=== PATIENT | female | born 1940 | race Caucasian/White ===

== ENCOUNTER 2016-08-01 18:12 | Inpatient (IN) | payer MEDICARE, MEDICAID ==
[2016-08-01 19:03] VITALS: BMI 20.5
[2016-08-01 19:26] LABS: AUTOMATED BASOPHIL 0.6 % (0-2); AUTOMATED LYMPH 3.9 % (17-44); AUTOMATED NEUTROPHIL 86.5 % (45-76); BLOOD UREA NITROGEN 32 MG/DL (7-17); CALCIUM 9.5 MG/DL (8.4-10.2); CALCULATED OSMOLALITY 270 MOs/Kg (270-290); CHLORIDE 102 mEq/L (98-107); GLUCOSE 150 MG/DL (70-99); MPV 12.5 fL (7.4-10.4); SODIUM LEVEL 135 mEq/L (137-146); TOTAL PROTEIN 7.5 G/DL (6.3-8.2)
[2016-08-01] MEDS ORDERED: PROMETHAZINE 25 MG/ML VIAL IV ONE (20:20)
--- NOTE | 2016-08-01 20:23 | EDPRACDOC ---
- General Information Chief Complaint: Nausea,Vomiting,Diarrhea Stated Complaint: NAUSEA Time Seen by Provider: 08/01/16 20:14 Information Source: Patient Mode Of Arrival: Car - History of Present Illness Onset: 4 DAYS HPI: PATIENT PRESENTS BECAUSE SHE HAS HAD NAUSEA, VOMITING AND DIARRHEA FOR 4 DAYS. DIFFUSE ABDOMINAL CRAMPING. FALLING BECAUSE OF WEAKNESS. NO HEAD INJURY. NO LOC Symptoms Occured: Reports: Spontaneous Duration: Reports: Since Onset Emesis: Reports: Bilious Pain Quality: Reports: Aching Pain Severity: Mild Pain Location: Reports: Diffuse Associated Signs & Symptoms: Reports: Nausea, Vomiting, Diarrhea Oral Intake: Decreased Urinary Output: Normal ED Past Medical History - History Reviewed Yes Nurses notes reviewed and agree except as marked Travel Outside of [place] in the Last 3 Months?: No - Patient Medical History Systemic History: Reports: Cancer (RIGHT BREAST) - Social Medical History ETOH: None Substance Abuse: None Lives With: Family Lives In: Home EDM Review of Systems - Review of Systems ROS Negative Except as Marked: Yes All systems reviewed and were negative except as marked Constitutional: No Symptoms Reported. negative: Fever, Chills, Weakness, Fatigue, Loss of Appetite Eyes: No Symptoms Reported. negative: Redness, Blurred Vision, Double Vision, Discharge, Pain, Light Sensitive, Photophobia Ears: No Symptoms Reported. negative: Pain, Hearing Loss, Drainage, Ear Pulling Throat: No Symptoms Reported. negative: Pain, Swelling Nose: No Symptoms Reported. negative: Congestion, Bleeding, Discharge, Injection, Swelling, Deformity, Ecchymosis, Tender, Abrasion, Laceration Mouth: No Symptoms Reported. negative: Pain, Drooling Respiratory: No Symptoms Reported. negative: Cough, Brassy Cough, Barky Cough, Shortness of Breath, Wheezing, Hemoptysis Cardiovascular: No Symptoms Reported. negative: Chest Pain, Palpitations, Syncope, Edema, Orthopnea, PND, Skin Mottling, Cyanosis Gastrointestinal: Diarrhea, Nausea, Pain, Vomiting. negative: Constipation, Formula Intolerance, Melena Genitourinary: No Symptoms Reported. negative: Dysuria, Hematuria, Frequency, Discharge, Bleeding, Testicular Pain, Neurological: No Symptoms Reported. negative: Headache, Dizziness, Seizure, Numbness, Weakness, Speech Difficulty, Gait Difficulty Musculoskeletal: No Symptoms Reported. negative: Neck, Chestwall, Ribs, Back, Shoulder, Arm, Elbow, Forearm, Wrist, Hand, Pelvis, Hip, Femur, Knee, Leg, Ankle , Foot Integumentary: No Symptoms Reported. negative: Itching, Rash, Bruising, Wound Allergic/Immunologic: No Symptoms Reported. negative: Hives, Itching Hematologic: No Symptoms Reported. negative: Lymphadenopathy, Easy Bruising, Easy Bleeding Endocrine: No Symptoms Reported. negative: Weight Gain, Weight Loss Psychiatric: No Symptoms Reported. negative: Anxiety, Depression, Hallucinations, Insomnia, Suicidal - Physical Exam Constitutional: Alert (Awake), No apparent distress Oriented to: Time, Person, Place Last recorded Vital Signs: Last Vital Signs Temp 99.5 F 08/01/16 18:58 Pulse 122 H 08/01/16 18:58 Resp 16 08/01/16 18:58 BP 104/55 L 08/01/16 18:58 Pulse Ox 93 08/01/16 18:58 Oxygen Pulse Oxygen Saturation 93 O2 Device Room Air Oxygen Flow Rate Fraction of Inspired Oxygen ( FIO2) - HEENT Head: Normal ( normocephalic) Eye Exam: Normal (PERRL, EOMI, Sclera white) Oropharynx: Normal (Pharynx:Moist without exudate,Gums-no swelling) Tympanic Membrane: Normal ENT EAC: Normal TMJ: Normal Nose: No Symptoms Reported (septum midline) Neck: Normal (FROM, trachea at midline) - Respiratory/Cardiovascular Respiratory: Normal - CTA (BBS clear to auscultation without adventitious sounds ) Cardiovascular: Normal (RRR without murmur, gallop or rub) - GI Auscultation: Normal (NABS) Palpation: Normal (Soft,No rebound or guarding, non distended) Tenderness: Non tender Spivey's Sign: Negative - Musculoskeletal Back: Normal (Non-Tender) Extremities: Normal (Normal tone, Pulses 2+ No cyanosis or edema, FROM) - Integumentary Skin: Normal, Warm, Dry Lymphatics: Normal (no adenopathy) - Neurologic Memory Impaired: Normal Motor Function: Normal (Normal tone, Pulses 2+ No cyanosis or edema, FROM) Cranial Nerve: Normal (CN II-X11 intact sensation, strength 5/5) Cerebellar: Normal Mood Description: Normal Perception: Normal - Results 08/01/16 19:05 08/01/16 19:05 WBC 13.9 xk/uL (3.8-10.8) H 08/01/16 19:05 RBC 4.47 xM/uL (4.20-5.40) 08/01/16 19:05 Hgb 13.6 g/dL (12.0-16.0) 08/01/16 19:05 Hct 40.7 % (36-47) 08/01/16 19:05 MCV 91 fL (81-99) 08/01/16 19:05 MCH 30.5 pg (27-32) 08/01/16 19:05 MCHC 33.5 g/dl (33-36) 08/01/16 19:05 RDW 13.3 % (11.5-14.5) 08/01/16 19:05 Plt Count 107 xk/uL (130-400) L 08/01/16 19:05 MPV 12.5 fL (7.4-10.4) H 08/01/16 19:05 Neut % (Auto) 86.5 % (45-76) H 08/01/16 19:05 Lymph % (Auto) 3.9 % (17-44) L 08/01/16 19:05 [place] % (Auto) 9.0 % (3-10) 08/01/16 19:05 Eos % (Auto) 0.0 % (0-5) 08/01/16 19:05 Baso % (Auto) 0.6 % (0-2) 08/01/16 19:05 Absolute Neuts (auto) 11.95 xk/uL (1.7-8.2) H 08/01/16 19:05 Absolute Lymphs (auto) 0.42 xk/uL (0.65-4.75) L 08/01/16 19:05 Sodium 135 mEq/L (137-146) L 08/01/16 19:05 Potassium 4.7 mEq/L (3.5-5.1) 08/01/16 19:05 Chloride 102 mEq/L (98-107) 08/01/16 19:05 Carbon Dioxide 19 mMOL/L (22-33) L 08/01/16 19:05 Anion Gap 19 mEq/L (8-16) H 08/01/16 19:05 BUN 32 MG/DL (7-17) H 08/01/16 19:05 Creatinine 1.50 MG/DL (0.52-1.04) H 08/01/16 19:05 Estimated GFR (MDRD) 34 mL/min (>=60) L 08/01/16 19:05 Glucose 150 MG/DL (70-99) H 08/01/16 19:05 Calculated Osmolality 270 MOs/Kg (270-290) 08/01/16 19:05 Calcium 9.5 MG/DL (8.4-10.2) 08/01/16 19:05 Total Bilirubin 1.0 MG/DL (0.2-1.3) 08/01/16 19:05 AST 21 IU/L (14-36) 08/01/16 19:05 ALT 24 IU/L (9-52) 08/01/16 19:05 Alkaline Phosphatase 74 IU/L (55-165) 08/01/16 19:05 Total Protein 7.5 G/DL (6.3-8.2) 08/01/16 19:05 Albumin 4.1 G/DL (3.5-5.0) 08/01/16 19:05 Amylase 50 IU/L (30-110) 08/01/16 19:05 Lipase 41 U/L (23-300) 08/01/16 19:05 Lab Results 08/01/16 08/01/16 19:05 19:05 WBC 13.9 H RBC 4.47 Hgb 13.6 Hct 40.7 MCV 91 MCH 30.5 MCHC 33.5 RDW 13.3 Plt Count 107 L MPV 12.5 H Neut % (Auto) 86.5 H Lymph % (Auto) 3.9 L [place] % (Auto) 9.0 Eos % (Auto) 0.0 Baso % (Auto) 0.6 Absolute Neuts (auto) 11.95 H Absolute Lymphs (auto) 0.42 L Sodium 135 L Potassium 4.7 Chloride 102 Carbon Dioxide 19 L Anion Gap 19 H BUN 32 H Creatinine 1.50 H Estimated GFR (MDRD) 34 L Glucose 150 H Calculated Osmolality 270 Calcium 9.5 Total Bilirubin 1.0 AST 21 ALT 24 Alkaline Phosphatase 74 Total Protein 7.5 Albumin 4.1 Amylase 50 Lipase 41 - Departure Yes I personally saw and evaluated the patient. Disposition: Admit IP To This Hospital Condition: Fair Final Diagnosis: Pyelonephritis Instructions: Acute Nausea and Vomiting (ED) Education/Counseling Given To: Patient Education/Counseling Given Regarding: Diagnosis, Treatment, Prognosis Decision to Admit Time: 23:24 Decision to admit date: 08/01/16 Decision to admit: from ED - Physician Consulted Hospitalist Time Called: 23:24 Provider Called: Chip Gamboa [employer] Returned Call: 23:24
[2016-08-01] MEDS: NS 1,000 ML IV ONE (20:45)
[2016-08-01] MEDS ORDERED: Pharmacy Review for Metformin - IV Contrast Given SCH (21:00)
[2016-08-01 21:02] LABS: LEUKOCYTES/URINE 2+ (NEGATIVE); NITRITE/URINE NEG (NEGATIVE); URINE OCCULT BLOOD 1+ (NEG/TRACE); WBC/URINE TNTC (0-5)
[2016-08-01] MEDS ORDERED: CEFTRIAXONE 1 GM in D5W 100 ML IV ONE (21:59)
--- NOTE | 2016-08-01 23:15 | DIRPT ---
CLINICAL DATA: Acute generalized abdominal pain, nausea, vomiting, diarrhea. EXAM: CT ABDOMEN AND PELVIS WITH CONTRAST TECHNIQUE: Multidetector CT imaging of the abdomen and pelvis was performed using the standard protocol following bolus administration of intravenous contrast. CONTRAST: 70 mL of Isovue 370 intravenously. COMPARISON: None. FINDINGS: Mild multilevel degenerative disc disease is noted in lower lumbar spine. Visualized lung bases are unremarkable. Large hiatal hernia is noted. No gallstones are noted. The liver, spleen and pancreas appear normal. Adrenal glands appear normal. Atherosclerosis of abdominal aorta is noted without aneurysm formation. 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 Multiple wedge-shaped low densities are noted in both kidneys, best seen on delayed post-contrast images, concerning for multifocal pyelonephritis or possibly infarctions secondary to embolic disease. No significant hydronephrosis or renal obstruction is noted. There is no evidence of bowel obstruction. Urinary bladder appears normal. Status post hysterectomy. No significant adenopathy is noted. IMPRESSION: Atherosclerosis of abdominal aorta is noted without aneurysm formation. Large hiatal hernia is noted. 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 Multiple wedge-shaped low densities are seen in both kidneys, best seen on delayed post-contrast images, most consistent with multifocal pyelonephritis, or possibly infarction secondary to embolic disease. Correlation with urinalysis is recommended. Electronically Signed By: Wes Escalante Jr, M.D. On: 08/01/2016 23:12
[2016-08-02] MEDS ORDERED: Albuterol/Ipratropium Neb 3 ML NEB NEB PRN (00:10)
[2016-08-02] MEDS ORDERED: SENNA CONCENTRATE TAB PO PRN (00:14)
[2016-08-02] MEDS ORDERED: BISACODYL 5 MG TAB PO PRN (00:14)
[2016-08-02] MEDS ORDERED: SIMETHICONE 80 MG TAB PO PRN (00:14)
[2016-08-02] MEDS ORDERED: TEMAZEPAM 15 MG CAP PO PRN (00:14)
[2016-08-02] MEDS ORDERED: ACETAMINOPHEN 650 MG SUPP PR PRN (00:14)
[2016-08-02] MEDS ORDERED: PROMETHAZINE 25 MG/ML VIAL IV PRN (00:14)
[2016-08-02] MEDS ORDERED: ONDANSETRON HCL 4 MG/2 ML VIAL IV PRN (00:14)
[2016-08-02] MEDS ORDERED: OXYCODONE HCL 5 MG TABLET PO PRN (00:15)
[2016-08-02] MEDS ORDERED: MORPHINE 2 MG/ML INJECTION IV PRN (00:15)
--- NOTE | 2016-08-02 00:18 | HISTPHYS ---
- Chief Complaint Fevers chills nausea vomiting flank pain - History of Present Illness 76 yowm presented emergency room early on today for evaluation of 5 days history of progressive worsening fevers chills nausea vomiting flank pain. Patient developed urinary symptoms with dysuria frequency and strong odor to the urine about 5 days ago. She reports initially suprapubic pressure, she has subsequent developed bilateral flank pain radiating towards both groins and gentle area. She has developed fevers shaking chills and had multiple episodes of nausea and vomiting. Her p.o. intake has declined and she has been very weak tired and very fatigued. Upon arrival in ED patient was febrile tachycardic and hypotensive. CT urogram showed pyelonephritis and medical consultation was phoned in for inpatient treatment. - Medical History Cardiac History: Reports: Hypercholesterolemia, Valvular Heart Disease Respiratory History: Reports: No Significant History GI/ History: Reports: Gastroesophageal Reflux Musculoskeletal History: Reports: Osteoarthritis Systemic History: Reports: Cancer (RIGHT BREAST) Neurological History: Reports: No Significant History Psychological History: Reports: Anxiety - Surgical History Reports: Hysterectomy (tkr, rotator, ,lumpectomy), Other - Medictions/Allergies Current Medication List: Reviewed - Family History Reports: Other (Father due to perforated ulcer and peritonitis at the age of 39.) - Social History Travel Outside of [place] in the Last 3 Months?: No Lives: Alone Smoking Status: Former smoker - Review of Systems Constitutional: Chills, Fever, Diaphoresis, Fatigue, Loss of Appetite, Weakness , Weight loss Eyes: No Symptoms Reported Ears: No Symptoms Reported Nose: No Symptoms Reported Mouth: No Symptoms Reported Throat/Neck: No Symptoms Reported Respiratory: No Symptoms Reported Cardiovascular: Palpitations Gastrointestinal: Nausea, Vomiting, Abdominal Pain, Diarrhea, Heartburn Genitourinary: Dysuria, Frequency, Urgency to urinate, Foul Ordor Neurological: No Symptoms Reported Musculoskeletal:: Arthritis Integumentary: No Symptoms Reported Allergic/Immunologic: No Symptoms Reported Hematologic: No Symptoms Reported Endocrine: No Symptoms Reported Psychiatric: No Symptoms Reported - Physical Exam Vital Signs: Initial Vitals Temperature 99.5 F 08/01/16 18:58 Pulse Rate 122 H 08/01/16 18:58 Respiratory Rate 16 08/01/16 18:58 Blood Pressure 104/55 L 08/01/16 18:58 Pulse Oxygen Saturation 93 08/01/16 18:58 Constitutional: Alert, Distress, Other (Acutely ill and toxic-appearing) Oriented to: Time, Person, Place - HEENT Eye: Normal Oropharynx: Membranes Dry ENT EAC: Normal TMJ: Normal Nose: No Symptoms Reported Respiratory: Diminished, Rhonchi Cardiovascular: Normal, Systolic murmur - GI Auscultation: Normal Palpation: Normal Tenderness: Mild, RLQ, LLQ Rectal Exam: Deferred - Exam Deferred: Yes - Musculoskeletal Back: Normal, CVA Tenderness Extremities: Edema Spine: limited range of motion - Integumentary Skin: Normal, Warm, Dry Lymphatics: Normal - Neurologic Memory Impaired: Normal Motor Function: Normal Cranial Nerve: Normal Cerebellar: Normal Mood Description: Normal, Anxious Thought: Coherent Perception: Normal - Focused CV Perfusion Exam Vital Signs: Last Vital Signs Temp 99.5 F 08/01/16 18:58 Pulse 122 H 08/01/16 19:50 Resp 18 08/01/16 19:50 BP 140/63 08/01/16 19:50 Pulse Ox 92 08/01/16 19:50 - Diagnostic Findings Allergies morphine Allergy (Verified 08/02/16 00:19) Itching Initial Vitals Temperature 99.5 F 08/01/16 18:58 Pulse Rate 122 H 08/01/16 18:58 Respiratory Rate 16 08/01/16 18:58 Blood Pressure 104/55 L 08/01/16 18:58 Pulse Oxygen Saturation 93 08/01/16 18:58 08/01/16 19:05 08/01/16 19:05 Abnormal Lab Results 08/01/16 08/01/16 08/01/16 19:05 19:05 20:40 WBC 13.9 H Plt Count 107 L MPV 12.5 H Neut % (Auto) 86.5 H Lymph % (Auto) 3.9 L Absolute Neuts (auto) 11.95 H Absolute Lymphs (auto) 0.42 L Sodium 135 L Carbon Dioxide 19 L Anion Gap 19 H BUN 32 H Creatinine 1.50 H Estimated GFR (MDRD) 34 L Glucose 150 H Urine Protein 2+ H Urine Occult Blood 1+ H Ur Leukocyte Esterase 2+ H Urine WBC Tntc H Urine WBC Clumps Present H Urine Bacteria 4+ H Hyaline Casts 10-20 H Urine Mucus Mod H Last Vital Signs Temp 99.5 F 08/01/16 18:58 Pulse 122 H 08/01/16 19:50 Resp 18 08/01/16 19:50 BP 140/63 08/01/16 19:50 Pulse Ox 92 08/01/16 19:50 Patient Name: ALISE KEBEDE LOC: ED : 1940 AGE: 76 Order Date:08/01/16 Date of Service:04/09 Report # [id number] Ord Physician: Alvarez,Dominic DO Exam # [id number] Emergency Physician: Dominic Alvarez DO Exam(s): [id number] CT/CT ABD-PELV W/IV CM CLINICAL DATA: Acute generalized abdominal pain, nausea, vomiting, diarrhea. EXAM: CT ABDOMEN AND PELVIS WITH CONTRAST TECHNIQUE: Multidetector CT imaging of the abdomen and pelvis was performed using the standard protocol following bolus administration of intravenous contrast. CONTRAST: 70 mL of Isovue 370 intravenously. COMPARISON: None. FINDINGS: Mild multilevel degenerative disc disease is noted in lower lumbar spine. Visualized lung bases are unremarkable. Large hiatal hernia is noted. No gallstones are noted. The liver, spleen and pancreas appear normal. Adrenal glands appear normal. Atherosclerosis of abdominal aorta is noted without aneurysm formation. 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 Multiple wedge-shaped low densities are noted in both kidneys, best seen on delayed post-contrast images, concerning for multifocal pyelonephritis or possibly infarctions secondary to embolic disease. No significant hydronephrosis or renal obstruction is noted. There is no evidence of bowel obstruction. Urinary bladder appears normal. Status post hysterectomy. No significant adenopathy is noted. IMPRESSION: Atherosclerosis of abdominal aorta is noted without aneurysm formation. Large hiatal hernia is noted. 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 Multiple wedge-shaped low densities are seen in both kidneys, best seen on delayed post-contrast images, most consistent with multifocal pyelonephritis, or possibly infarction secondary to embolic disease. Correlation with urinalysis is recommended. Electronically Signed By: Wes Escalante Jr, M.D. - Assessment (1) Pyelonephritis N12 - TUBULO-INTERSTITIAL NEPHRITIS, NOT SPCF ACUTE OR CHRONIC Acute Present on Admission: Yes Patient be admitted to general medical floor. She will receive IV Rocephin and IV Levaquin. Will adjust antibiotics based on culture results.. (2) Acute kidney injury N17.9 - ACUTE KIDNEY FAILURE, UNSPECIFIED Acute Present on Admission: Yes Monitor kidney function daily BMP, avoid any nephrotoxins.. Aggressive IV hydration we provided. (3) Dehydration E86.0 - DEHYDRATION Acute Present on Admission: Yes Continue IV fluids as outlined above. (4) GERD (gastroesophageal reflux disease) K21.9 - GASTRO-ESOPHAGEAL REFLUX DISEASE WITHOUT ESOPHAGITIS Chronic Present on Admission: Yes Qualifiers: Esophagitis presence: without esophagitis Qualified Code(s): K21.9 - Gastro -esophageal reflux disease without esophagitis Continue PPI (5) Hiatal hernia K44.9 - DIAPHRAGMATIC HERNIA WITHOUT OBSTRUCTION OR GANGRENE Chronic Present on Admission: Yes Continue PPI. Continue dietary and behavioral modifications. (6) Flank pain R10.9 - UNSPECIFIED ABDOMINAL PAIN Acute Present on Admission: Yes Continue narcotic analgesics on as needed basis Case Care Discussed with: Patient, Nursing Staff Total Time: 55 min . Critical Care: No Code: 90089
[2016-08-02] MEDS ORDERED: NS 1,000 ML IV SCH (01:00)
[2016-08-02] MEDS: NS 1,000 ML IV SCH ×2 (01:01→09:30)
[2016-08-02] MEDS: ENOXAPARIN 30 MG/0.3 ML PFS SQ SCH ×2 (01:54→17:19)
[2016-08-02] MEDS ORDERED: Levofloxacin 750 mg/150 ml D5W 750 MG/150 ML RTU IV ONE (02:00)
[2016-08-02] MEDS ORDERED: ALPRAZOLAM 0.5 MG TAB PO PRN (02:15)
[2016-08-02] MEDS: ACETAMINOPHEN 325 MG/TAB TABLET PO PRN ×2 (02:31→10:43)
[2016-08-02] MEDS: PANTOPRAZOLE 40 MG TAB PO SCH (05:17)
[2016-08-02] MEDS ORDERED: Vaccine Screening Complete SCH (12:00)
[2016-08-02] MEDS ORDERED: DICYCLOMINE 20 MG TAB PO PRN (14:20)
--- NOTE | 2016-08-02 17:19 | GENMEDPROG ---
Subjective Note: Patient had an episode of hypotension last night. She got multiple sedating medications before bed. She seems to take a great deal of them at home. She is also complaining of significant pain in her back Um likely related to her pyelonephritis. Notes Reviewed: Yes Events from last night noted and discussed with Clinical Staff Current Medication List: Reviewed Currently: Reports: Abdominal Pain, Ambulating DVT Prophylaxis: Yes - Physical Examination Vital Signs and I&O: Last Vital Signs Temp 99.0 F 08/02/16 14:00 Pulse 92 08/02/16 16:37 Resp 18 08/02/16 14:00 BP 91/52 L 08/02/16 14:00 Pulse Ox 96 08/02/16 14:00 Oxygen Pulse Oxygen Saturation 96 O2 Device Room Air Oxygen Flow Rate Fraction of Inspired Oxygen ( FIO2) Intake & Output 07/30/16 07/31/16 08/01/16 08/02/16 23:59 23:59 23:59 23:59 Intake Total 1734 Output Total 200 Balance 1534 Patient's weight 54.794 kg General: Alert, Oriented x3, No acute distress, Well appearing, Well nourished HEENT: Normal (Normocephalic, atraumatic;EOMI.Sclera white, Nares patent, without discharge or bleeding. No oropharyngeal lesions or erythema. Mucous membranes are dry.) Lymphatics: Normal Respiratory: Diminished, Rhonchi Cardiovascular: Regular rate and rhythm (No bradycardia or tachycardia), Normal S1, No Gallops,Rubs/Murmurs, Normal S2, Good Pedal Pulses (DP pulses 2+ bilaterally) GI: Normal bowel sounds (normal active sounds), Soft (non-distended), Non tender , No hepatospenomegaly, No masses Extremities/Musculoskeletal: Normal pulses (DP pulses 2+ bilaterally) Skin: Warm,Dry and Intact, No rashes, No significant lesion Neurological: Strength at 5/5 X4 ext (Motor 5/5 throughout.), Normal tone, Cranial nerves 3-12 NL ( 2-12 grossly intact.) Lab/DI/Studies Reviewed: Laboratory Results - last 24 hr 08/01/16 08/01/16 08/01/16 19:05 19:05 20:40 WBC 13.9 H RBC 4.47 Hgb 13.6 Hct 40.7 MCV 91 MCH 30.5 MCHC 33.5 RDW 13.3 Plt Count 107 L MPV 12.5 H Neut % (Auto) 86.5 H Lymph % (Auto) 3.9 L [place] % (Auto) 9.0 Eos % (Auto) 0.0 Baso % (Auto) 0.6 Absolute Neuts (auto) 11.95 H Absolute Lymphs (auto) 0.42 L Sodium 135 L Potassium 4.7 Chloride 102 Carbon Dioxide 19 L Anion Gap 19 H BUN 32 H Creatinine 1.50 H Estimated GFR (MDRD) 34 L Glucose 150 H Calculated Osmolality 270 Calcium 9.5 Total Bilirubin 1.0 AST 21 ALT 24 Alkaline Phosphatase 74 Total Protein 7.5 Albumin 4.1 Amylase 50 Lipase 41 Urine Color Yellow Urine Clarity Sl cldy Urine pH 6.0 Ur Specific [place] 1.005 Urine Protein 2+ H Urine Glucose (UA) Neg Urine Ketones Neg Urine Occult Blood 1+ H Urine Nitrite Neg Urine Bilirubin Neg Urine Urobilinogen <2.0 Ur Leukocyte Esterase 2+ H Urine WBC Tntc H Urine WBC Clumps Present H Urine Bacteria 4+ H Hyaline Casts 10-20 H Urine Mucus Mod H - Assessment (1) Acute kidney injury Acute N17.9 - ACUTE KIDNEY FAILURE, UNSPECIFIED Comment/Plan: Monitor kidney function daily BMP, avoid any nephrotoxins. (2) Dehydration Acute E86.0 - DEHYDRATION Comment/Plan: Continue IV fluids as outlined above. (3) Flank pain Acute R10.9 - UNSPECIFIED ABDOMINAL PAIN Comment/Plan: Continue narcotic analgesics on as needed basis (4) Pyelonephritis Acute N12 - TUBULO-INTERSTITIAL NEPHRITIS, NOT SPCF ACUTE OR CHRONIC Comment/Plan: Patient be admitted to general medical floor. She will receive IV Rocephin and IV Levaquin. Will adjust antibiotics based on culture results.. (5) GERD (gastroesophageal reflux disease) Chronic K21.9 - GASTRO-ESOPHAGEAL REFLUX DISEASE WITHOUT ESOPHAGITIS Qualifiers: Esophagitis presence: without esophagitis Qualified Code(s): K21.9 - Gastro -esophageal reflux disease without esophagitis Comment/Plan: Continue PPI (6) Hiatal hernia Chronic K44.9 - DIAPHRAGMATIC HERNIA WITHOUT OBSTRUCTION OR GANGRENE Comment /Plan: Continue PPI. Continue dietary and behavioral modifications. - Plan Plan is for patient to continue Case Care Discussed with: Patient, Nursing Staff Education/Counseling Given To: Patient Education/Counseling Given Regarding: Diagnosis, Treatment, Prognosis, Follow Up , Disposition Plan Total Time: 35 minutes Critical Care: No Couseling Time (>50% in counseling/coordination): No
[2016-08-02] MEDS: IBUPROFEN 400 MG TAB PO PRN (18:09)
[2016-08-02] MEDS: PENTOSAN POLYSULFATE SODIUM 100 MG PO SCH (20:19)
[2016-08-02] MEDS: PRAVASTATIN 20 MG TAB PO SCH (20:19)
[2016-08-02] MEDS: GABAPENTIN 100 MG CAP PO SCH (20:20)
[2016-08-02] MEDS: CEFTRIAXONE 1 GM in D5W 100 ML IV SCH ×2 (20:20→21:38)
[2016-08-02] MEDS: TIZANIDINE 2 MG TAB PO SCH (20:20)
[2016-08-02] MEDS ORDERED: ALPRAZOLAM 0.5 MG TAB PO SCH (21:00)
[2016-08-02] MEDS: NS 1,000 ML IV ONE ×3 (21:54→22:56)
[2016-08-03] MEDS: NS 1,000 ML IV SCH ×4 (00:17→20:44)
[2016-08-03] MEDS ORDERED: NS 250 ML IV ONE (00:44)
[2016-08-03] MEDS ORDERED: NS 1,000 ML IV SCH (01:00)
[2016-08-03] MEDS ORDERED: NS 1,000 ML IV ONE (01:57)
[2016-08-03] MEDS ORDERED: Levofloxacin 250 mg/50 ml D5W 250 MG/50 ML RTU IV SCH (02:00)
[2016-08-03] MEDS: GABAPENTIN 100 MG CAP PO SCH ×3 (04:45→21:59)
[2016-08-03] MEDS: PANTOPRAZOLE 40 MG TAB PO SCH (04:45)
[2016-08-03 07:26] LABS: AUTOMATED BASOPHIL 0.2 % (0-2); AUTOMATED EOSINOPHIL 0.2 % (0-5); AUTOMATED LYMPH 4.2 % (17-44); AUTOMATED NEUTROPHIL 87.4 % (45-76); MPV 12.2 fL (7.4-10.4)
[2016-08-03] MEDS: OMEGA-3-ACID ETHYL ESTERS 1000 MG CAP PO SCH (08:22)
[2016-08-03] MEDS: CYANOCOBALAMIN (Vitamin B-12) 500 MCG TABLET PO SCH (08:22)
[2016-08-03] MEDS: PENTOSAN POLYSULFATE SODIUM 100 MG PO SCH ×2 (08:22→21:59)
[2016-08-03] MEDS: RALOXIFENE 60 MG TAB PO SCH (08:22)
[2016-08-03] MEDS: MAGNESIUM OXIDE 400 MG TAB PO SCH (08:22)
[2016-08-03] MEDS: IBUPROFEN 400 MG TAB PO PRN (08:27)
[2016-08-03] MEDS ORDERED: FISH OIL PO SCH (09:00)
[2016-08-03] MEDS ORDERED: Non-Formulary Medication ITEM (Cholecalciferol (Vitamin D3) [Vitamin D3] 2,000 UNIT) PO SCH (09:00)
[2016-08-03] MEDS ORDERED: MAGNESIUM 200 MG PO SCH (09:00)
[2016-08-03] MEDS ORDERED: OMEGA PO SCH (09:00)
[2016-08-03] MEDS ORDERED: Non-Formulary Medication ITEM (Cyanocobalamin (Vitamin B-12) [Vitamin B-12] 1,000 MCG) PO SCH (09:00)
[2016-08-03] MEDS ORDERED: FATTY ACIDS PO SCH (09:00)
[2016-08-03] MEDS ORDERED: [UNRECOGNIZED DRUG - OTHER] PO SCH (09:00)
[2016-08-03] MEDS ORDERED: Non-Formulary Medication ITEM (Ca/D3/Mag#11/Zinc/Cop/Mang/Bor [Caltrate 600+D Plus Table PO SCH (09:00)
[2016-08-03 09:12] LABS: BLOOD UREA NITROGEN 15 MG/DL (7-17); CALCIUM 7.6 MG/DL (8.4-10.2); CALCULATED OSMOLALITY 273 MOs/Kg (270-290); CHLORIDE 116 mEq/L (98-107); GLUCOSE 81 MG/DL (70-99); SODIUM LEVEL 142 mEq/L (137-146)
[2016-08-03] MEDS: CALCIUM CARBONATE + VITAMIN D 500 MG TAB PO SCH (11:51)
[2016-08-03] MEDS: CHOLECALCIFEROL 1000 UNITS TAB PO SCH (11:51)
[2016-08-03] MEDS: IBUPROFEN 800 MG TAB PO SCH ×2 (15:38→21:59)
[2016-08-03] MEDS ORDERED: ENOXAPARIN 40 MG/0.4 ML PFS SQ SCH (18:00)
[2016-08-03] MEDS: PRAVASTATIN 20 MG TAB PO SCH (21:59)
[2016-08-03] MEDS: TIZANIDINE 2 MG TAB PO SCH (21:59)
[2016-08-03] MEDS: CEFTRIAXONE 1 GM in D5W 100 ML IV SCH (22:01)
[2016-08-04] MEDS: NS 1,000 ML IV SCH ×3 (02:29→10:23)
[2016-08-04] MEDS: IBUPROFEN 800 MG TAB PO SCH ×3 (02:34→14:51)
[2016-08-04] MEDS: GABAPENTIN 100 MG CAP PO SCH ×2 (05:13→13:43)
[2016-08-04] MEDS: PANTOPRAZOLE 40 MG TAB PO SCH (05:13)
[2016-08-04] MEDS ORDERED: FUROSEMIDE 40 MG/4 ML VIAL IV ONE (07:29)
[2016-08-04] MEDS: CYANOCOBALAMIN (Vitamin B-12) 500 MCG TABLET PO SCH (07:53)
[2016-08-04] MEDS: MAGNESIUM OXIDE 400 MG TAB PO SCH (07:53)
[2016-08-04] MEDS: RALOXIFENE 60 MG TAB PO SCH (07:54)
[2016-08-04] MEDS: OMEGA-3-ACID ETHYL ESTERS 1000 MG CAP PO SCH (07:54)
[2016-08-04] MEDS: PENTOSAN POLYSULFATE SODIUM 100 MG PO SCH (07:56)
[2016-08-04] MEDS ORDERED: CEFAZOLIN 1 GM in D5W 100 ML IV SCH (10:13)
[2016-08-04] MEDS: CHOLECALCIFEROL 1000 UNITS TAB PO SCH (11:45)
[2016-08-04] MEDS: CALCIUM CARBONATE + VITAMIN D 500 MG TAB PO SCH (11:45)
[2016-08-04] MEDS ORDERED: Cefazolin 1gm/50 ml D5W 1 GM/50 ML RTU IV SCH ×3 (12:00)
[2016-08-04 13:59] VITALS: BP 148/81; TEMP 97.7
--- NOTE | 2016-08-04 14:56 | PCM.DCS92 ---
- Final/Secondary Discharge Diagnosis (1) Acute kidney injury Resolved N17.9 - ACUTE KIDNEY FAILURE, UNSPECIFIED Present on Admission: Yes Comment: Monitor kidney function daily BMP, avoid any nephrotoxins. (2) Dehydration Resolved E86.0 - DEHYDRATION Present on Admission: Yes Comment: Continue IV fluids as outlined above. (3) Flank pain Acute R10.9 - UNSPECIFIED ABDOMINAL PAIN Present on Admission: Yes Comment: Continue narcotic analgesics on as needed basis (4) Pyelonephritis Acute N12 - TUBULO-INTERSTITIAL NEPHRITIS, NOT SPCF ACUTE OR CHRONIC Present on Admission: Yes Comment: Patient be admitted to general medical floor. She will receive IV Rocephin and IV Levaquin. Will adjust antibiotics based on culture results.. (5) GERD (gastroesophageal reflux disease) Chronic K21.9 - GASTRO-ESOPHAGEAL REFLUX DISEASE WITHOUT ESOPHAGITIS Present on Admission: Yes without esophagitis K21.9 - Gastro-esophageal reflux disease without esophagitis Comment: Continue PPI (6) Hiatal hernia Chronic K44.9 - DIAPHRAGMATIC HERNIA WITHOUT OBSTRUCTION OR GANGRENE Present on Admission: Yes Comment: Continue PPI. Continue dietary and behavioral modifications. Discharge Condition: Fair Physician Follow up/Referrals: None,No Provider [Family Provider] - One Week New Prescriptions: Cephalexin Monohydrate [Keflex] 500 mg PO Q8H #30 cap Oxycodone Immediate Release [Oxycodone Immediate Release (OxyIR)] 5 mg PO Q4H PRN #20 tablet PRN Reason: Moderate To Severe Pain O2 Device: Room Air - DC Summary Notes Hospital Course Note:: Discharge summary on patient named ALISE KEBEDE admitted to [facility] on 08/02/16 by Chip Gamboa MD. Date of discharge is []. - Physical Exam Vital Signs: Last Vital Signs Temp 97.7 F 08/04/16 13:58 Pulse 100 08/04/16 13:58 Resp 18 08/04/16 13:58 BP 148/81 08/04/16 13:58 Pulse Ox 96 08/04/16 13:58 Oxygen Pulse Oxygen Saturation 96 O2 Device Room Air Oxygen Flow Rate Fraction of Inspired Oxygen ( FIO2) Constitutional: Alert, Distress, Other (Acutely ill and toxic-appearing) Oriented to: Time, Person, Place - HEENT Eye: Normal Oropharynx: Membranes Dry ENT EAC: Normal TMJ: Normal Nose: No Symptoms Reported - Respiratory/Cardiovascular Respiratory: Diminished, Rhonchi - GI Auscultation: Normal Palpation: Normal Tenderness: Mild, RLQ, LLQ Rectal Exam: Deferred - Musculoskeletal Back: Normal, CVA Tenderness Extremities: Edema - Integumentary Skin: Normal (Warm dry no rashes) Lymphatics: Normal - Neurologic Memory Impaired: Normal Cerebellar: Normal Mood Description: Normal, Anxious Thought: Coherent Perception: Normal
--- NOTE | 2016-08-04 14:58 | GENMEDPROG ---
Subjective Note: Patient starting to feel better renal function significantly improved. Tolerating p.o. Notes Reviewed: Yes Events from last night noted and discussed with Clinical Staff Current Medication List: Reviewed Currently: Reports: Abdominal Pain, Ambulating. Denies: Nausea and Vomiting DVT Prophylaxis: Yes - Physical Examination Vital Signs and I&O: Last Vital Signs Temp 97.7 F 08/04/16 13:58 Pulse 100 08/04/16 13:58 Resp 18 08/04/16 13:58 BP 148/81 08/04/16 13:58 Pulse Ox 96 08/04/16 13:58 Oxygen Pulse Oxygen Saturation 96 O2 Device Room Air Oxygen Flow Rate Fraction of Inspired Oxygen ( FIO2) Intake & Output 08/01/16 08/02/16 08/03/16 08/04/16 23:59 23:59 23:59 23:59 Intake Total 6172 4277 3247 Output Total 443 1500 4100 Balance 5523 3256 -081 Patient's weight 54.794 kg 55.82 kg 63.191 kg General: Alert, Oriented x3, No acute distress, Well appearing, Well nourished HEENT: Normal (Normocephalic, atraumatic;EOMI.Sclera white, Nares patent, without discharge or bleeding. No oropharyngeal lesions or erythema. Mucous membranes are dry.) Neck: Non-tender, Full range of motion, Normal Trachea alignment, Normal inspection (No cervical lymphadenopathy. No supraclavicular lymphadenopathy.), No Masses palpable, Supple Lymphatics: Normal Respiratory: Diminished, Rhonchi Cardiovascular: Regular rate and rhythm (No bradycardia or tachycardia), Normal S1, No Gallops,Rubs/Murmurs, Normal S2, Good Pedal Pulses (DP pulses 2+ bilaterally) GI: Normal bowel sounds (normal active sounds), Soft (non-distended), Non tender , No hepatospenomegaly, No masses Extremities/Musculoskeletal: Normal pulses (DP pulses 2+ bilaterally) Skin: Warm,Dry and Intact, No rashes, No significant lesion Neurological: Strength at 5/5 X4 ext (Motor 5/5 throughout.), Normal tone, Cranial nerves 3-12 NL ( 2-12 grossly intact.) Lab/DI/Studies Reviewed: Laboratory Tests 08/03/16 08/03/16 07:03 07:03 WBC 11.9 H Hgb 12.4 Hct 38.1 Plt Count 71 L Sodium 142 D Potassium 4.3 Chloride 116 H Carbon Dioxide 16 L Anion Gap 14 BUN 15 Creatinine 1.00 Estimated GFR (MDRD) 54 L Glucose 81 Calculated Osmolality 273 Calcium 7.6 L Magnesium 2.00 Microbiology 08/01/16 20:40 Urine - Clean Catch - Midstream Urine Culture - Preliminary Escherichia coli Non-fermenting gram-neg neo - Assessment (1) Pyelonephritis Acute N12 - TUBULO-INTERSTITIAL NEPHRITIS, NOT SPCF ACUTE OR CHRONIC Comment/Plan: Continue current IV antibiotics adjust as culture data becomes available. (2) E coli infection Acute A49.8 - OTHER BACTERIAL INFECTIONS OF UNSPECIFIED SITE Comment/Plan: Growing E coli in urine await sensitivities (3) Flank pain Acute R10.9 - UNSPECIFIED ABDOMINAL PAIN Comment/Plan: Continue narcotic analgesics on as needed basis (4) Acute kidney injury Resolved N17.9 - ACUTE KIDNEY FAILURE, UNSPECIFIED Comment/Plan: Monitor kidney function daily BMP, avoid any nephrotoxins. Renal function now normal (5) Dehydration Resolved E86.0 - DEHYDRATION Comment/Plan: Resolved tapered to p.o. liquids (6) GERD (gastroesophageal reflux disease) Chronic K21.9 - GASTRO-ESOPHAGEAL REFLUX DISEASE WITHOUT ESOPHAGITIS Qualifiers: Esophagitis presence: without esophagitis Qualified Code(s): K21.9 - Gastro -esophageal reflux disease without esophagitis Comment/Plan: Continue PPI (7) Hiatal hernia Chronic K44.9 - DIAPHRAGMATIC HERNIA WITHOUT OBSTRUCTION OR GANGRENE Comment /Plan: Continue PPI. Continue dietary and behavioral modifications. - Plan Plan is for patient to continue current antibiotics. Disposition Plan: Likely home Case Care Discussed with: Patient, Nursing Staff Education/Counseling Given To: Patient Education/Counseling Given Regarding: Diagnosis, Treatment, Prognosis, Follow Up , Disposition Plan Total Time: 45 minutes Critical Care: No Couseling Time (>50% in counseling/coordination): No
--- NOTE | 2016-08-04 15:03 | PCM.DCS92 ---
- Final/Secondary Discharge Diagnosis (1) Pyelonephritis Acute N12 - TUBULO-INTERSTITIAL NEPHRITIS, NOT SPCF ACUTE OR CHRONIC Present on Admission: Yes Comment: Continue current IV antibiotics adjust as culture data becomes available. (2) E coli infection Acute A49.8 - OTHER BACTERIAL INFECTIONS OF UNSPECIFIED SITE Comment: Growing E coli in urine await sensitivities (3) Flank pain Acute R10.9 - UNSPECIFIED ABDOMINAL PAIN Present on Admission: Yes Comment: Continue narcotic analgesics on as needed basis (4) Acute kidney injury Resolved N17.9 - ACUTE KIDNEY FAILURE, UNSPECIFIED Present on Admission: Yes Comment: Monitor kidney function daily BMP, avoid any nephrotoxins. Renal function now normal (5) Dehydration Resolved E86.0 - DEHYDRATION Present on Admission: Yes Comment: Resolved tapered to p.o. liquids (6) GERD (gastroesophageal reflux disease) Chronic K21.9 - GASTRO-ESOPHAGEAL REFLUX DISEASE WITHOUT ESOPHAGITIS Present on Admission: Yes without esophagitis K21.9 - Gastro-esophageal reflux disease without esophagitis Comment: Continue PPI (7) Hiatal hernia Chronic K44.9 - DIAPHRAGMATIC HERNIA WITHOUT OBSTRUCTION OR GANGRENE Present on Admission: Yes Comment: Continue PPI. Continue dietary and behavioral modifications. Discharge Disposition: Home Discharge Condition: Improved Cognitive Discharge Status: Unimpaired Fuctional Discharge Status: Independent New Prescriptions: Cephalexin Monohydrate [Keflex] 500 mg PO Q8H #30 cap Oxycodone Immediate Release [Oxycodone Immediate Release (OxyIR)] 5 mg PO Q4H PRN #20 tablet PRN Reason: Moderate To Severe Pain Discharge Home Medication List Alprazolam [Xanax] 1 mg PO QHS 08/02/16 [History Confirmed 08/02/16] Ca/D3/Mag#11/Zinc/Mandate Retail Service Merchandiser/Elías/Bor [Caltrate 600+D Plus Tablet] 1 tab PO DAILY 08/02 [History Confirmed 08/02/16] Cholecalciferol (Vitamin D3) [Vitamin D3] 2,000 unit PO DAILY 08/02/16 [History Confirmed 08/02/16] Cyanocobalamin (Vitamin B-12) [Vitamin B-12] 1,000 mcg PO DAILY 08/02/16 [ History Confirmed 08/02/16] Dicyclomine HCl [Bentyl] 20 - 40 mg PO Q6H PRN 08/02/16 [History Confirmed 08/02] Gabapentin [Neurontin] 100 mg PO TID 08/02/16 [History Confirmed 08/02/16] HydrOXYzine HCl (Antihistamine [Atarax] 25 mg PO QHS 08/02/16 [History Confirmed 08/02/16] Magnesium [Magnesium Gluconate] 200 mg PO DAILY 08/02/16 [History Confirmed 05/09] [place]-3 Fatty Acids/Fish Oil [Fish Oil 1,[address]] 1 cap PO DAILY 08/02 [History Confirmed 08/02/16] Pentosan Polysulfate Sodium [Elmiron] 200 mg PO BID 08/02/16 [History Confirmed 08/02/16] Pravastatin Sodium [Pravachol] 20 mg PO HS 08/02/16 [History Confirmed 08/02/16] Raloxifene [Evista] 60 mg PO DAILY 08/02/16 [History Confirmed 08/02/16] Tizanidine [Zanaflex] 4 mg PO QHS 08/02/16 [History Confirmed 08/02/16] Cephalexin Monohydrate [Keflex] 500 mg PO Q8H #30 cap 08/04/16 [Rx] Oxycodone Immediate Release [Oxycodone Immediate Release (OxyIR)] 5 mg PO Q4H PRN #20 tablet 08/04/16 [Rx] New Discharge Medications (Rx) Cephalexin Monohydrate [Keflex] 500 mg PO Q8H #30 cap 08/04/16 [Rx] Oxycodone Immediate Release [Oxycodone Immediate Release (OxyIR)] 5 mg PO Q4H PRN #20 tablet 08/04/16 [Rx] O2 Device: Room Air Additional Instructions: Follow up with your regular medical doctor in 1 week. If you do not have a medical doctor we can obtain 1 for you. Diet at Discharge: As Tolerated, Regular Activity: No Restrictions Call Office For: Worsening Symptoms, Fever over 101 F, Pain Uncontrolled By Meds - DC Summary Notes Hospital Course Note:: Discharge summary on patient named ALISE KEBEDE admitted to [facility] on 08/02/16 by Chip Gamboa MD. Date of discharge is []. Pleasant 76-year-old female who presented to the emergency department with fever and flank pain. She was found to have pyelonephritis. She grew out a pansensitive E coli from her urine and improved very quickly. During her hospitalization she was able to tolerate p.o. fluids and solids as well as ambulate without any difficulty. At this point patient is stable for discharge home. She will follow up with a primary care physician 1 week. Total Time: 45 minutes - Physical Exam Vital Signs: Last Vital Signs Temp 97.7 F 08/04/16 13:58 Pulse 100 08/04/16 13:58 Resp 18 08/04/16 13:58 BP 148/81 08/04/16 13:58 Pulse Ox 96 08/04/16 13:58 Oxygen Pulse Oxygen Saturation 96 O2 Device Room Air Oxygen Flow Rate Fraction of Inspired Oxygen ( FIO2) Constitutional: Alert, Distress, Other (Acutely ill and toxic-appearing) Oriented to: Time, Person, Place - HEENT Eye: Normal Oropharynx: Membranes Dry ENT EAC: Normal TMJ: Normal Nose: No Symptoms Reported - Respiratory/Cardiovascular Respiratory: Diminished, Rhonchi - GI Auscultation: Normal Palpation: Normal Tenderness: Mild, RLQ, LLQ Rectal Exam: Deferred - Musculoskeletal Back: Normal, CVA Tenderness Extremities: Edema - Integumentary Lymphatics: Normal - Neurologic Memory Impaired: Normal Cerebellar: Normal Mood Description: Normal, Anxious Thought: Coherent Perception: Normal
[2016-08-04 18:41] VITALS: PULSE 97
== END 2016-08-04 16:57 | disposition home or self-care (01) | DRG 690 ==
LOC: ED 18:12 → MPS3 08-02 00:10
PROVIDERS: ADMIT Internal Medicine; ATTEND Hospitalist
DX: N12 Tubulo-interstitial nephritis, not specified as acute or chronic (principal); N17.9 Acute kidney failure, unspecified; B96.20 Unspecified Escherichia coli [E. coli] as the cause of diseases classified elsewhere; K21.9 Gastro-esophageal reflux disease without esophagitis; K44.9 Diaphragmatic hernia without obstruction or gangrene; E78.00 Pure hypercholesterolemia, unspecified; I51.9 Heart disease, unspecified; Z85.3 Personal history of malignant neoplasm of breast; F41.9 Anxiety disorder, unspecified; Z87.891 Personal history of nicotine dependence; E86.0 Dehydration
CPT/HCPCS: 36415; 74177; 80048; 80053; 81001; 82150; 83690; 83735; 85025; 87040; 87077; 87086; 87186; 87804; 96361; 96372; 96375; 99284; A9698; G0237; J0690; J0696; J1650; J1940; J1956; J2550; J3490; J7060

== ENCOUNTER 2016-08-20 13:25 | Emergency (ER) | payer MEDICARE, MEDICAID ==
[2016-08-20 13:44] VITALS: TEMP 98.1; BMI 23.8
[2016-08-20] MEDS ORDERED: NS 1,000 ML IV ONE ×2 (14:09→17:41)
[2016-08-20 14:57] LABS: LEUKOCYTES/URINE NEG (NEGATIVE); NITRITE/URINE NEG (NEGATIVE); RBC/URINE 0-2 (0-5); URINE OCCULT BLOOD NEG (NEG/TRACE)
--- NOTE | 2016-08-20 15:12 | DIRPT ---
CLINICAL DATA: Sepsis. EXAM: PORTABLE CHEST 1 VIEW COMPARISON: 11/25/2014 FINDINGS: Moderate to large sized hiatal hernia. Mild hyperinflation of the lungs. No confluent airspace opacities or effusions. Heart is normal size. No acute bony abnormality. IMPRESSION: Hyperinflation. Moderate to large hiatal hernia. Electronically Signed By: Guille Clifford M.D. On: 08/20/2016 15:10
[2016-08-20 16:11] LABS: AUTOMATED BASOPHIL 0.8 % (0-2); AUTOMATED EOSINOPHIL 0.2 % (0-5); AUTOMATED LYMPH 14.9 % (17-44); AUTOMATED MONOCYTE 9.6 % (3-10); AUTOMATED NEUTROPHIL 74.5 % (45-76); MPV 11.4 fL (7.4-10.4)
[2016-08-20 16:17] LABS: BLOOD UREA NITROGEN 26 MG/DL (7-17); CALC CORRECTED 10.4 MG/DL (8.4-10.2); CALCIUM 9.9 MG/DL (8.4-10.2); CALCULATED OSMOLALITY 269 MOs/Kg (270-290); CHLORIDE 101 mEq/L (98-107); GLUCOSE 90 MG/DL (70-99); SODIUM LEVEL 137 mEq/L (137-146); TOTAL PROTEIN 6.8 G/DL (6.3-8.2)
[2016-08-20 16:20] LABS: PARTIAL THROMB. TIME 28.4 SEC (22-35); PT-INR 1.1
--- NOTE | 2016-08-20 16:28 | EDPRACDOC ---
<Dominic Alvarez - Last Filed: 08/20/16 18:48> - General Information Information Source: Patient, Desizing Machine Offbearer Mode Of Arrival: Ambulance - History of Present Illness Onset: this am HPI: Pt sent from urgent care for low BP in 90's systolic. No prior hx of low BP, or HTN. Pt admitted 08/01/16 to for pyelonephritis, d/c 08/04 with keflex. Pt took all the keflex but states that she cont to feel weak with bilateral "kidney pain ". Denies fever, cp, sob, N/V/D, chnage in urine or BM. Med hx = none. Symptoms: Reports: Mild Circumstances: Reports: Spontaneous Onset Relevent History of: Reports: None Hypertension Treatment: Reports: None Recent Use of: Reports: None Associated Signs and Symptoms: Reports: None <Gregor Padgett - Last Filed: 08/20/16 20:02> - General Information Chief Complaint: Blood Pressure (Problems) Stated Complaint: HYPOTENSION Time Seen by Provider: 08/20/16 15:50 Home Medications: Home Medications Alprazolam [Xanax] 1 mg PO QHS 08/02/16 Ca/D3/Mag#11/Zinc/Design Chief/Elías/Bor [Caltrate 600+D Plus Tablet] 1 tab PO DAILY 08/02 Cholecalciferol (Vitamin D3) [Vitamin D3] 2,000 unit PO DAILY 08/02/16 Cyanocobalamin (Vitamin B-12) [Vitamin B-12] 1,000 mcg PO DAILY 08/02/16 Dicyclomine HCl [Bentyl] 20 - 40 mg PO Q6H PRN 08/02/16 Gabapentin [Neurontin] 100 mg PO TID 08/02/16 HydrOXYzine HCl (Antihistamine [Atarax] 25 mg PO QHS 08/02/16 Magnesium [Magnesium Gluconate] 200 mg PO DAILY 08/02/16 [place]-3 Fatty Acids/Fish Oil [Fish Oil 1,[address]] 1 cap PO DAILY 08/02 Pentosan Polysulfate Sodium [Elmiron] 200 mg PO BID 08/02/16 Pravastatin Sodium [Pravachol] 20 mg PO HS 08/02/16 Raloxifene [Evista] 60 mg PO DAILY 08/02/16 Tizanidine [Zanaflex] 4 mg PO QHS 08/02/16 Furosemide [Lasix] 20 mg PO DAILY PRN 08/20/16 Sulfamethoxazole/Trimethoprim [Bactrim Ds Tablet] 1 tab PO BID #20 tab 08/20/16 Allergies/Adverse Reactions: Allergies Allergy/AdvReac Type Severity Reaction Status Date / Time morphine Allergy Itching Verified 08/20/16 13:44 - Treatment Prior to ED Arrival Reported Medications/Treatment SYSTEMS ADMINISTRATOR EMS Treatment ALS IV Yes <Dominic Alvarez - Last Filed: 08/20/16 18:48> - Treatment Prior to ED Arrival Reported Medications/Treatment SYSTEMS ADMINISTRATOR EMS Treatment ALS IV Yes <Gregor Padgett - Last Filed: 08/20/16 20:02> ED Past Medical History - History Reviewed Yes Nurses notes reviewed and agree except as marked - Patient Medical History Cardiac History: Reports: Hypercholesterolemia, Valvular Heart Disease GI/ History: Reports: Gastroesophageal Reflux Musculoskeletal History: Reports: Osteoarthritis. Denies: Arthritis Psychological History: Reports: Depression, Anxiety Systemic History: Reports: Cancer (RIGHT BREAST) Surgical History: Reports: Hysterectomy (tkr, rotator, ,lumpectomy), Other - Social Medical History Smoking Status: Former smoker <Gregor Padgett - Last Filed: 08/20/16 20:02> EDM Review of Systems - Review of Systems ROS Negative Except as Marked: Yes All systems reviewed and were negative except as marked Constitutional: Weakness Gastrointestinal: Other (bilatewrla "kidney pain") ROS Comments: low BP at urgent care <Gregor Padgett - Last Filed: 08/20/16 20:02> - Physical Exam Last recorded Vital Signs: Last Vital Signs Temp 98.1 F 08/20/16 13:44 Pulse 72 08/20/16 17:08 Resp 18 08/20/16 17:08 BP 114/63 08/20/16 17:08 Pulse Ox 93 08/20/16 17:08 Oxygen Pulse Oxygen Saturation 93 O2 Device Room Air Oxygen Flow Rate Fraction of Inspired Oxygen ( FIO2) <Dominic Alvarez - Last Filed: 08/20/16 18:48> - Physical Exam Constitutional: No apparent distress, Alert Oriented to: Time, Person, Place Last recorded Vital Signs: Last Vital Signs Temp 98.1 F 08/20/16 13:44 Pulse 88 08/20/16 13:44 Resp 18 08/20/16 13:44 BP 101/55 L 08/20/16 13:44 Pulse Ox 95 08/20/16 13:44 Oxygen Pulse Oxygen Saturation 95 O2 Device Room Air Oxygen Flow Rate Fraction of Inspired Oxygen ( FIO2) - HEENT Head: Normal Eye Exam: negative: Conjunctival Injection, Scleral Icterus Oropharynx: negative: Drooling TMJ: Normal Nose: No Symptoms Reported Neck: Normal - Respiratory/Cardiovascular Respiratory: Normal - CTA Cardiovascular: Normal - GI Auscultation: Normal Palpation: Normal Tenderness: Non tender - Musculoskeletal Back: Normal Extremities: Normal - Integumentary Skin: Normal - Neurologic Mood Description: Normal Thought: Coherent Perception: Normal <Gregor Padgett - Last Filed: 08/20/16 20:02> - Results 08/20/16 15:50 08/20/16 15:50 WBC 7.7 xk/uL (3.8-10.8) 08/20/16 15:50 RBC 3.75 xM/uL (4.20-5.40) L 08/20/16 15:50 Hgb 11.4 g/dL (12.0-16.0) L 08/20/16 15:50 Hct 34.3 % (36-47) L 08/20/16 15:50 MCV 91 fL (81-99) 08/20/16 15:50 MCH 30.3 pg (27-32) 08/20/16 15:50 MCHC 33.2 g/dl (33-36) 08/20/16 15:50 RDW 13.1 % (11.5-14.5) 08/20/16 15:50 Plt Count 249 xk/uL (130-400) 08/20/16 15:50 MPV 11.4 fL (7.4-10.4) H 08/20/16 15:50 Neut % (Auto) 74.5 % (45-76) 08/20/16 15:50 Lymph % (Auto) 14.9 % (17-44) L 08/20/16 15:50 [place] % (Auto) 9.6 % (3-10) 08/20/16 15:50 Eos % (Auto) 0.2 % (0-5) 08/20/16 15:50 Baso % (Auto) 0.8 % (0-2) 08/20/16 15:50 Absolute Neuts (auto) 5.70 xk/uL (1.7-8.2) 08/20/16 15:50 Absolute Lymphs (auto) 1.08 xk/uL (0.65-4.75) 08/20/16 15:50 PT 11.3 SEC (9.2-11.2) H 08/20/16 15:50 INR 1.1 08/20/16 15:50 APTT 28.4 SEC (22-35) 08/20/16 15:50 Sodium 137 mEq/L (137-146) 08/20/16 15:50 Potassium 4.7 mEq/L (3.5-5.1) 08/20/16 15:50 Chloride 101 mEq/L (98-107) 08/20/16 15:50 Carbon Dioxide 25 mMOL/L (22-33) 08/20/16 15:50 Anion Gap 16 mEq/L (8-16) 08/20/16 15:50 BUN 26 MG/DL (7-17) H 08/20/16 15:50 Creatinine 1.40 MG/DL (0.52-1.04) H 08/20/16 15:50 Estimated GFR (MDRD) 37 mL/min (>=60) L 08/20/16 15:50 Glucose 90 MG/DL (70-99) 08/20/16 15:50 Calculated Osmolality 269 MOs/Kg (270-290) L 08/20/16 15:50 Lactic Acid 0.7 mEq/L (0.7-2.1) 08/20/16 16:30 Calcium 9.9 MG/DL (8.4-10.2) 08/20/16 15:50 Corrected Calcium 10.4 MG/DL (8.4-10.2) H 08/20/16 15:50 Total Bilirubin 0.8 MG/DL (0.2-1.3) 08/20/16 15:50 AST 39 IU/L (14-36) H 08/20/16 15:50 ALT 51 IU/L (9-52) 08/20/16 15:50 Alkaline Phosphatase 83 IU/L (55-165) 08/20/16 15:50 Total Protein 6.8 G/DL (6.3-8.2) 08/20/16 15:50 Albumin 3.5 G/DL (3.5-5.0) 08/20/16 15:50 Urine Color Yellow 08/20/16 14:45 Urine Clarity Clear 08/20/16 14:45 Urine pH 7.0 (5.0-8.0) 08/20/16 14:45 Ur Specific [place] 1.005 (1.003-1.035) 08/20/16 14:45 Urine Protein Neg (NEG/TRACE) 08/20/16 14:45 Urine Glucose (UA) Neg (NEGATIVE) 08/20/16 14:45 Urine Ketones Neg (NEGATIVE) 08/20/16 14:45 Urine Occult Blood Neg (NEG/TRACE) 08/20/16 14:45 Urine Nitrite Neg (NEGATIVE) 08/20/16 14:45 Urine Bilirubin Neg (NEGATIVE) 08/20/16 14:45 Urine Urobilinogen <2.0 MG/DL (0-1) 08/20/16 14:45 Ur Leukocyte Esterase Neg (NEGATIVE) 08/20/16 14:45 Urine RBC 0-2 (0-5) 08/20/16 14:45 Urine WBC 10-20 (0-5) H 08/20/16 14:45 Ur Epithelial Cells 1+ 08/20/16 14:45 Urine Bacteria Few (NEG/FEW) 08/20/16 14:45 Hyaline Casts 2-5 (0-2) H 08/20/16 14:45 Urine Mucus Occ (NEG/OCC) 08/20/16 14:45 Lab Results 08/20/16 08/20/16 08/20/16 16:30 15:50 15:50 WBC 7.7 RBC 3.75 L Hgb 11.4 L Hct 34.3 L MCV 91 MCH 30.3 MCHC 33.2 RDW 13.1 Plt Count 249 MPV 11.4 H Neut % (Auto) 74.5 Lymph % (Auto) 14.9 L [place] % (Auto) 9.6 Eos % (Auto) 0.2 Baso % (Auto) 0.8 Absolute Neuts (auto) 5.70 Absolute Lymphs (auto) 1.08 PT 11.3 H INR 1.1 APTT 28.4 Sodium Potassium Chloride Carbon Dioxide Anion Gap BUN Creatinine Estimated GFR (MDRD) Glucose Calculated Osmolality Lactic Acid 0.7 Calcium Corrected Calcium Total Bilirubin AST ALT Alkaline Phosphatase Total Protein Albumin Urine Color Urine Clarity Urine pH Ur Specific [place] Urine Protein Urine Glucose (UA) Urine Ketones Urine Occult Blood Urine Nitrite Urine Bilirubin Urine Urobilinogen Ur Leukocyte Esterase Urine RBC Urine WBC Ur Epithelial Cells Urine Bacteria Hyaline Casts Urine Mucus 08/20/16 08/20/16 15:50 14:45 WBC RBC Hgb Hct MCV MCH MCHC RDW Plt Count MPV Neut % (Auto) Lymph % (Auto) [place] % (Auto) Eos % (Auto) Baso % (Auto) Absolute Neuts (auto) Absolute Lymphs (auto) PT INR APTT Sodium 137 Potassium 4.7 Chloride 101 Carbon Dioxide 25 Anion Gap 16 BUN 26 H Creatinine 1.40 H Estimated GFR (MDRD) 37 L Glucose 90 Calculated Osmolality 269 L Lactic Acid Calcium 9.9 Corrected Calcium 10.4 H Total Bilirubin 0.8 AST 39 H ALT 51 Alkaline Phosphatase 83 Total Protein 6.8 Albumin 3.5 Urine Color Yellow Urine Clarity Clear Urine pH 7.0 Ur Specific [place] 1.005 Urine Protein Neg Urine Glucose (UA) Neg Urine Ketones Neg Urine Occult Blood Neg Urine Nitrite Neg Urine Bilirubin Neg Urine Urobilinogen <2.0 Ur Leukocyte Esterase Neg Urine RBC 0-2 Urine WBC 10-20 H Ur Epithelial Cells 1+ Urine Bacteria Few Hyaline Casts 2-5 H Urine Mucus Occ <Dominic Alvarez - Last Filed: 08/20/16 18:48> - Results 08/20/16 15:50 08/20/16 15:50 WBC 7.7 xk/uL (3.8-10.8) 08/20/16 15:50 RBC 3.75 xM/uL (4.20-5.40) L 08/20/16 15:50 Hgb 11.4 g/dL (12.0-16.0) L 08/20/16 15:50 Hct 34.3 % (36-47) L 08/20/16 15:50 MCV 91 fL (81-99) 08/20/16 15:50 MCH 30.3 pg (27-32) 08/20/16 15:50 MCHC 33.2 g/dl (33-36) 08/20/16 15:50 RDW 13.1 % (11.5-14.5) 08/20/16 15:50 Plt Count 249 xk/uL (130-400) 08/20/16 15:50 MPV 11.4 fL (7.4-10.4) H 08/20/16 15:50 Neut % (Auto) 74.5 % (45-76) 08/20/16 15:50 Lymph % (Auto) 14.9 % (17-44) L 08/20/16 15:50 [place] % (Auto) 9.6 % (3-10) 08/20/16 15:50 Eos % (Auto) 0.2 % (0-5) 08/20/16 15:50 Baso % (Auto) 0.8 % (0-2) 08/20/16 15:50 Absolute Neuts (auto) 5.70 xk/uL (1.7-8.2) 08/20/16 15:50 Absolute Lymphs (auto) 1.08 xk/uL (0.65-4.75) 08/20/16 15:50 PT 11.3 SEC (9.2-11.2) H 08/20/16 15:50 INR 1.1 08/20/16 15:50 APTT 28.4 SEC (22-35) 08/20/16 15:50 Urine Color Yellow 08/20/16 14:45 Urine Clarity Clear 08/20/16 14:45 Urine pH 7.0 (5.0-8.0) 08/20/16 14:45 Ur Specific [place] 1.005 (1.003-1.035) 08/20/16 14:45 Urine Protein Neg (NEG/TRACE) 08/20/16 14:45 Urine Glucose (UA) Neg (NEGATIVE) 08/20/16 14:45 Urine Ketones Neg (NEGATIVE) 08/20/16 14:45 Urine Occult Blood Neg (NEG/TRACE) 08/20/16 14:45 Urine Nitrite Neg (NEGATIVE) 08/20/16 14:45 Urine Bilirubin Neg (NEGATIVE) 08/20/16 14:45 Urine Urobilinogen <2.0 MG/DL (0-1) 08/20/16 14:45 Ur Leukocyte Esterase Neg (NEGATIVE) 08/20/16 14:45 Urine RBC 0-2 (0-5) 08/20/16 14:45 Urine WBC 10-20 (0-5) H 08/20/16 14:45 Ur Epithelial Cells 1+ 08/20/16 14:45 Urine Bacteria Few (NEG/FEW) 08/20/16 14:45 Hyaline Casts 2-5 (0-2) H 08/20/16 14:45 Urine Mucus Occ (NEG/OCC) 08/20/16 14:45 Lab Results 08/20/16 08/20/16 08/20/16 15:50 15:50 14:45 WBC 7.7 RBC 3.75 L Hgb 11.4 L Hct 34.3 L MCV 91 MCH 30.3 MCHC 33.2 RDW 13.1 Plt Count 249 MPV 11.4 H Neut % (Auto) 74.5 Lymph % (Auto) 14.9 L [place] % (Auto) 9.6 Eos % (Auto) 0.2 Baso % (Auto) 0.8 Absolute Neuts (auto) 5.70 Absolute Lymphs (auto) 1.08 PT 11.3 H INR 1.1 APTT 28.4 Urine Color Yellow Urine Clarity Clear Urine pH 7.0 Ur Specific [place] 1.005 Urine Protein Neg Urine Glucose (UA) Neg Urine Ketones Neg Urine Occult Blood Neg Urine Nitrite Neg Urine Bilirubin Neg Urine Urobilinogen <2.0 Ur Leukocyte Esterase Neg Urine RBC 0-2 Urine WBC 10-20 H Ur Epithelial Cells 1+ Urine Bacteria Few Hyaline Casts 2-5 H Urine Mucus Occ - EKG EKG #1 EKG Time: 14:23 -: Yes EKG interpreted by me Rate: bpm: 82 Rhythm: NSR, PVCs ST: Normal - Diagnostic Imaging Chest Image interpreted by: Radiologist EXAM: PORTABLE CHEST 1 VIEW COMPARISON: 11/25/2014 FINDINGS: Moderate to large sized hiatal hernia. Mild hyperinflation of the lungs. No confluent airspace opacities or effusions. Heart is normal size. No acute bony abnormality. IMPRESSION: Hyperinflation. Moderate to large hiatal hernia. Electronically Signed By: Guille Clifford M.D. On: 08/20/2016 15:10 <Gregor Padgett - Last Filed: 08/20/16 20:02> Decision Time to Discharge: 18:30 - Departure Yes I personally saw and evaluated the patient. <Dominic Alvarez - Last Filed: 08/20/16 18:48> - Departure Disposition: Home Education/Counseling Given To: Patient Education/Counseling Given Regarding: Diagnosis, Treatment, Prognosis, Follow Up <Gregor Padgett - Last Filed: 08/20/16 20:02> - Departure Condition: Stable Final Diagnosis: UTI (urinary tract infection) Qualifiers: Urinary tract infection type: site unspecified Hematuria presence: without hematuria Qualified Code(s): N39.0 - Urinary tract infection, site not specified Hypotension Qualifiers: Hypotension type: unspecified hypotension type Qualified Code(s): I95.9 - Hypotension, unspecified Instructions: Urinary Tract Infection in Women (ED), Dysuria Referrals: Carlos A Schumacher MD [Primary Care Provider] - One Week Prescriptions: Continue Sulfamethoxazole/Trimethoprim [Bactrim Ds Tablet] 1 tab PO BID #20 tab No Action Raloxifene [Evista] 60 mg PO DAILY [place]-3 Fatty Acids/Fish Oil [Fish Oil 1,[address]] 1 cap PO DAILY Magnesium [Magnesium Gluconate] 200 mg PO DAILY Cholecalciferol (Vitamin D3) [Vitamin D3] 2,000 unit PO DAILY Ca/D3/Mag#11/Zinc/Design Chief/Elías/Bor [Caltrate 600+D Plus Tablet] 1 tab PO DAILY Tizanidine [Zanaflex] 4 mg PO QHS Pravastatin Sodium [Pravachol] 20 mg PO HS HydrOXYzine HCl (Antihistamine [Atarax] 25 mg PO QHS Dicyclomine HCl [Bentyl] 20 - 40 mg PO Q6H PRN PRN Reason: Abdominal Pain Alprazolam [Xanax] 1 mg PO QHS Pentosan Polysulfate Sodium [Elmiron] 200 mg PO BID Gabapentin [Neurontin] 100 mg PO TID Cyanocobalamin (Vitamin B-12) [Vitamin B-12] 1,000 mcg PO DAILY Furosemide [Lasix] 20 mg PO DAILY PRN PRN Reason: Swelling In Feet/Legs Additional Instructions: Follow up with primary care for low blood pressure. Drink plenty of fluids. Take bactrim for urinary tract infection. Return to ED for any new or worsening symptoms.
[2016-08-20 18:30] VITALS: PULSE 71
[2016-08-20 19:04] VITALS: BP 120/66
== END 2016-08-20 19:02 | disposition home or self-care (01) ==
LOC: ED 13:25
DX: N39.0 Urinary tract infection, site not specified (principal); I95.9 Hypotension, unspecified
CPT/HCPCS: 36415; 71010; 80053; 81001; 83605; 85025; 85610; 85730; 87040; 87086; 93005; 96360; 96361; 99285

== ENCOUNTER 2016-08-21 19:56 | Emergency (ER) | payer MEDICARE, MEDICAID ==
[2016-08-21 19:57] VITALS: BMI 23.8
[2016-08-21 20:43] VITALS: BP 96/67; PULSE 106; TEMP 99.9
== END 2016-08-22 00:30 | disposition left against medical advice (07) ==
LOC: ED 19:56
DX: R50.9 Fever, unspecified (principal)
CPT/HCPCS: 99281